=== PATIENT | male | born 1990 | race American Indian/Alaskan Native ===

== ENCOUNTER 2017-12-02 01:32 | Emergency (ER) | payer SELFPAY ==
[2017-12-02 01:33] VITALS: BMI 22.4
[2017-12-02 01:58] VITALS: TEMP 98.2
--- NOTE | 2017-12-02 02:17 | ED PDOC ---
HPI: Back Time Seen by Provider: 12/02/17 02:04 Chief Complaint (Nursing): Back Pain Chief Complaint (Provider): Back Pain History Per: Patient History/Exam Limitations: no limitations Onset/Duration Of Symptoms: Days (1x) Current Symptoms Are (Timing): Constant Quality Of Discomfort: Sharp Additional Complaint(s): 27 year old male with no significant past medical history presents to the ED complaining of right sided lower back pain that started 24 hours ago. He reports that his pain is sharp, constant, radiates to his buttocks and leg and is worse with movement. Patient states he has to bend in his course of work. He denies urinary retention, incontinence, numbness in LLE, any trauma, injuries, falls or any other medical complaints. PMD: none provided. Past Medical History Reviewed: Historical Data, Nursing Documentation, Vital Signs Vital Signs: Last Vital Signs Temp 98.2 F 12/02/17 01:45 Pulse 96 H 12/02/17 01:45 Resp 17 12/02/17 01:45 BP 146/81 12/02/17 01:45 Pulse Ox 98 12/02/17 01:45 - Medical History PMH: No Chronic Diseases Denies: Depression - Surgical History Surgical History: No Surg Hx - Family History Family History: States: Unknown Family Hx - Immunization History Hx Tetanus Toxoid Vaccination: No Hx Influenza Vaccination: No Hx Pneumococcal Vaccination: No - Home Medications Home Medications: Ambulatory Orders Medication Instructions Recorded Azithromycin [Z-Alex] 250 mg PO DAILY #6 tab 07/08/16 Prednisone [Deltasone] 60 mg PO DAILY #12 tablet 07/08/16 Promethazine DM [Phenergan DM Oral 5 ml PO Q4H PRN #120 ml 07/08/16 Syrup] Cyclobenzaprine [Cyclobenzaprine 10 mg PO TID PRN #15 tab 12/02/17 HCl] Naproxen [Naprosyn] 500 mg PO Q12 #14 tab 12/02/17 - Allergies Allergies/Adverse Reactions: Allergies Allergy/AdvReac Type Severity Reaction Status Date / Time apples Allergy Mild SWELLING Uncoded 01/07/16 12:55 Review of Systems ROS Statement: Except As Marked, All Systems Reviewed And Found Negative Musculoskeletal: Positive for: Back Pain (lower right sided) Physical Exam - Reviewed Nursing Documentation Reviewed: Yes Vital Signs Reviewed: Yes - Physical Exam Appears: Positive for: Non-toxic, Uncomfortable Head Exam: Positive for: ATRAUMATIC, NORMAL INSPECTION, NORMOCEPHALIC Skin: Positive for: Normal Color, Warm, Dry Eye Exam: Positive for: EOMI, Normal appearance, PERRL Neck: Positive for: Normal, Painless ROM Back: Positive for: Muscle Spasm (palpable muscle spasm to paralumbar muscles), Other (leg raise tenderness at 30 degrees) Neurologic/Psych: Positive for: Alert, Oriented (x3) - ECG O2 Sat by Pulse Oximetry: 98 (RA) Pulse Ox Interpretation: Normal Medical Decision Making Medical Decision Making: Time: 2:08 Initial Impression: 27 year old male with lower back pain and sciatica Initial Plan: --Lumbar spine complete [RAD] --Flexeril 10 mg PO --Toradol 30 mg IM Time: 3:39 --Lumbar spine showed no fracture or dislocation. Patient reports improvement in symptoms. Diagnosis sciatica. Patient medically stable for discharge, given Flexeril and Naproxen and advised to follow up with PMD. Scribe Attestation: Documented by Yuki Jalloh, acting as a scribe for Stew Ahn MD Provider Scribe Attestation: All medical record entries made by the Scribe were at my direction and personally dictated by me. I have reviewed the chart and agree that the record accurately reflects my personal performance of the history, physical exam, medical decision making, and the department course for this patient. I have also personally directed, reviewed, and agree with the discharge instructions and disposition. Disposition - Clinical Impression Clinical Impression: Sciatica - Disposition Disposition Time: 03:39 Condition: IMPROVED Prescriptions: Cyclobenzaprine [Cyclobenzaprine HCl] 10 mg PO TID PRN #15 tab PRN Reason: back pain Naproxen [Naprosyn] 500 mg PO Q12 #14 tab Instructions: Sciatica Forms: [employer] ([employer])
[2017-12-02 04:08] VITALS: BP 135/85; PULSE 74; RESP 16; O2SAT 99
--- NOTE | 2017-12-02 09:35 | RAD ---
PROCEDURE: Radiographs of the Lumbar Spine. HISTORY: low back pain COMPARISON: No prior. FINDINGS: BONES: Normal alignment. No listhesis. No fracture. DISC SPACES: L5-S1 disc space narrowing. OTHER FINDINGS: None. IMPRESSION: L5-S1 disc space narrowing. Otherwise unremarkable radiographs of the lumbar spine.
== END 2017-12-02 04:09 | disposition home or self-care (01) ==
LOC: H.ER 01:32
DX: M54.31 Sciatica, right side (principal)
CPT/HCPCS: 72114; 96372; 99283; J1885